=== PATIENT | female | born 1985 | race Hispanic/Latino ===

== ENCOUNTER 2022-08-07 03:57 | Emergency (ER) | payer OTHER, SELFPAY ==
[2022-08-07 04:16] VITALS: BP 141/91; PULSE 68; RESP 16; TEMP 36.8; O2SAT 98; BMI 26.7
--- NOTE | 2022-08-07 04:27 | ED.GENADULT ---
HPI - General Adult General Chief complaint: Extremity Injury, Upper Stated complaint: Dog bite, R hand/wrist Time Seen by Provider: 08/07/22 04:21 Source: patient Mode of arrival: Ambulatory History of Present Illness HPI narrative: Patient is a 37-year-old female who comes emergency department for dog bite to her right hand/wrist. It occurred within the past 12 hours. It was a domesticated talk block into a friend of hers. She does not know when her last tetanus shot was. She is having some redness over the area. Related Data Previous Rx's Medication Instructions Recorded amoxicillin 875 mg-potassium 1 tab PO Q12H 7 days #14 tabs 08/07/22 clavulanate 125 mg tablet Allergies Allergy/AdvReac Type Severity Reaction Status Date / Time No Known Drug Allergies Allergy Verified 08/07/22 04:56 Review of Systems Constitutional Constitutional: Reports system reviewed and no additional complaints, except as documented Musculoskeletal Musculoskeletal: Reports system reviewed and no additional complaints, except as documented Integumentary/Breasts Skin/Breast: Reports system reviewed and no additional complaints, except as documented Neurologic Neurologic: Reports system reviewed and no additional complaints, except as documented Hematologic/Lymphatic On Anticoagulants: No Patient History Social History Smoking Status: Never smoker Smoking Status: Never smoker alcohol intake frequency: holidays/special occasions only Substance Use Type: does not use Exam Initial Vital Signs Initial Vital Signs: Vital Signs Temperature 98.3 F 08/07/22 04:16 Pulse Rate 68 08/07/22 04:16 Respiratory Rate 16 08/07/22 04:16 Blood Pressure 141/91 H 08/07/22 04:16 Pulse Oximetry 98 08/07/22 04:16 Oxygen Delivery Method Room Air 08/07/22 04:16 HENMT Head: normal to inspection Cardio Pulses: radial pulses present on the right Skin Other: Patient was superficial puncture wounds located on right wrist both on the volar and dorsal aspect. Small redness located around the wound on the volar area. Neuro Sensory Exam: no sensory deficits noted Extrem General: capillary refill normal Course Orders Ordered: ED Orders 08/07/22 04:28 XR wrist RT min 3V Stat Discontinued Medications Diphtheria/Tetanus/Acell Pertussis (Tet,Diph,Pertuss(Acell),Vac/Pf 0.5 Ml Syringe) 0.5 ml IM .ONCE ONE Stop: 08/07/22 04:29 Last Admin: 08/07/22 04:34 Dose: 0.5 ml Documented By: ROLY Vital Signs Vital signs: Vital Signs - 8 hr 08/07/22 04:16 Temperature 98.3 F Pulse Rate 68 Respiratory Rate 16 Blood Pressure 141/91 H Pulse Oximetry 98 Oxygen Delivery Method Room Air Medical Decision Making Imaging Data Extremity x-ray #1: Radiologist's Impression: No fractures or dislocations MDM Narrative Medical decision making narrative: Patient's tetanus was updated. Given the nature of the wound we will start her on antibiotics. X-ray shows no fractures or dislocations or foreign bodies. Patient was given care instructions and return precautions. She expressed understanding and agreement with plan. Discharge Plan Departure Patient Disposition: Home Clinical Impression: Animal bite Instructions: DI for Animal Bites Activity Restrictions/Additional Instructions: You can shower like normal. You can also put ice over the area. You can take Tylenol or ibuprofen for any discomfort. Return to the emergency department for new or worsening symptoms. Prescriptions: New amoxicillin-pot clavulanate 875-125 mg tablet 1 tab PO Q12H 7 Days Qty: 14 0RF Stand Alone Forms: Patient Portal/API
--- NOTE | 2022-08-07 04:28 | DI.RAD.S_ITS ---
PROCEDURE: XR WRIST RT MIN 3V INDICATIONS: dog bite TECHNIQUE: 4 views of the wrist were acquired. COMPARISON: None. FINDINGS: Bones: No fractures or dislocations. No suspicious bony lesions. Scaphoid view: Scaphoid is intact. Soft tissues: No suspicious soft tissue calcifications. IMPRESSION: No acute wrist fracture or dislocation. No radiopaque foreign body is seen. No discrepancies. Dictated by: Royer Bautista M.D. on 08/07/2022 at 7:46 Approved by: Royer Bautista M.D. on 08/07/2022 at 7:48
[2022-08-07] MEDS: TET,DIPH,PERTUSS(ACELL),VAC/PF 0.5 ML SYRINGE IM (04:34)
[2022-08-07 05:40] VITALS: BP 121/80; PULSE 82; RESP 18; O2SAT 100
== END 2022-08-07 05:40 | disposition home or self-care (01) ==
PROVIDERS: Emergency Provider Emergency Medicine
DX: S61.451A Open bite of right hand, initial encounter (principal); W54.0XXA Bitten by dog, initial encounter; Z23 Encounter for immunization
CPT/HCPCS: 73110; 90471; 99283; 90715